=== PATIENT | male | born 1955 | race Caucasian/White ===

== ENCOUNTER 2023-11-05 04:41 | Emergency (ER) | payer OTHER, SELFPAY ==
[2023-11-05] VITALS (115 sets, daily range): BP systolic 150–223; BP diastolic 48–67; PULSE 57–85; RESP 8–27; TEMP 36.6; O2SAT 98
--- NOTE | 2023-11-05 04:30 | RT.EKG_ITS ---
APPROVED REPORT Exam: Resting ECG Reason for Exam: CHEST PAIN Patient Location: E HR:80 bpm ECG Measurements Heart Rate 80 AXIS KS 218 P 80 QRSd 104 QRS -11 QT 392 T 30 QTc 452 Conclusion Sinus rhythm...normal P axis, V-rate 60- 99 Borderline prolonged KS interval...KS >212, V-rate 50- 90 Consider anteroseptal infarct...Q >30mS, dimin R, V1-V2
--- NOTE | 2023-11-05 05:00 | DI.RAD_ITS ---
Exam(s) XR CHEST 2V PA LATERAL EXAM: XR CHEST 2V PA LATERAL CLINICAL HISTORY: shortness of breath. TECHNIQUE: 2D digital imaging was performed. COMPARISON: No exams were available for comparison FINDINGS: 2 views: Heart size is normal. The mediastinum is not widened. Lungs are clear. No infiltrates nor pleural effusions. IMPRESSION: No acute pulmonary findings. DATA REPOSITORY: RADIATION DOSE DELIVERED:
--- NOTE | 2023-11-05 05:13 | ED.GENADUL_ITS ---
Discharge Plan Disposition Patient Disposition: Home Condition: Stable Discharge Details Chief Complaint: RespSymp Clinical Impression: Sleep apnea-like behavior, Atrioventricular block, Mobitz type 1, Wenckebach, Bradycardia by electrocardiography Primary Care Provider: Danica,Local ED Provider: Doroteo Burnette Home Meds and New Rx's Prescriptions: No Action aspirin 81 mg capsule 81 mg PO DAILY amlodipine 5 mg tablet 5 mg PO DAILY atorvastatin 40 mg tablet 40 mg PO DAILY eplerenone 25 mg tablet 25 mg PO BID bumetanide 1 mg tablet 2 mg PO BID gabapentin 600 mg tablet 600 mg PO TID hydralazine 25 mg tablet 100 mg PO BID hydrocodone-acetaminophen 5-325 mg tablet 1 tab PO TID PRN nitroglycerin [Nitrostat] 0.4 mg tablet, sublingual 0.4 mg sublingual Q5-15M PRN Rx Instructions: do not exceed 3 doses per episode tamsulosin 0.4 mg capsule 0.8 mg PO QHS multivitamin with minerals 9 mg iron/15 mL liquid 15 ml PO DAILY omega 4-jqi-jpx-fish oil [Fish Oil] 1,000 mg (120 mg-180 mg) capsule 1 cap PO DAILY C Complex 1,000 mg tablet extended release 1,000 mg PO DAILY Discharge Instructions Instructions: Bradycardia (ED) Additional Instructions: When you fall asleep, you develop a relatively persistent bradycardia (slow heartbeat). This is a Mobitz type I AV block, also called Rosalee Vasquez. And while this is not a life-threatening cardiac dysrhythmia, it can be symptomatic. If you are bradycardic for long enough, it will wake you up from sleep and make you feel as though you are suffocating. No immediate intervention is needed, however you should contact and follow-up with your performance tester when you return to your local area to discuss possible treatments to help improve your heart rate and sleeping. Discharge Data Discharge Physician: Doroteo Burnette [facility] General Date/Time Provider Initiated Documentation: 11/05/23 04:44 . HPI Narrative: The patient is a 67-year-old male, with a past medical history significant for myocardial infarction with stenting in 2013, intermittent AV block, hypertension, diabetes mellitus, who recently had medication changed for increased swelling in his bilateral lower extremities and feet, who presents to the emergency department this morning with complaints of awakening from sleep at around 1:30 AM suddenly with a sense that he was suffocating and that he was going to . The patient states that he is somewhat chronically short of breath, but has not experienced something like this before. The patient took a warm shower and then got out as it seemed to make him feel worse. The patient tried a few puffs on his albuterol inhaler without any improvement in his symptoms. Currently the patient tells me that he feels exhausted, but has relatively normal breathing. The patient denies having any known prior history of sleep apnea, but states that he is currently scheduled to undergo sleep testing in [place] sometime in the near future. The patient denies any associated chest pain at the time of the event. The patient does report that he felt like my heart was going to beat out of my chest. Related Data Home Medications Medication Instructions Recorded Confirmed amlodipine 5 mg tablet 5 mg PO DAILY 11/05/23 11/05/23 ascorbic acid (vitamin C) 1,000 mg 1,000 mg PO DAILY 11/05/23 11/05/23 tablet,extended release (C Complex) aspirin 81 mg capsule 81 mg PO DAILY 11/05/23 11/05/23 atorvastatin 40 mg tablet 40 mg PO DAILY 11/05/23 11/05/23 bumetanide 1 mg tablet 2 mg PO BID 11/05/23 11/05/23 eplerenone 25 mg tablet 25 mg PO BID 11/05/23 11/05/23 gabapentin 600 mg tablet 600 mg PO TID 11/05/23 11/05/23 hydralazine 25 mg tablet 100 mg PO BID 11/05/23 11/05/23 hydrocodone 5 mg-acetaminophen 325 1 tab PO TID PRN 11/05/23 11/05/23 mg tablet multivit and minerals-ferrous 15 ml PO DAILY 11/05/23 11/05/23 gluconate 9 mg iron/15 mL oral liquid (multivitamin with minerals) nitroglycerin 0.4 mg sublingual 0.4 mg sublingual Q5-15M PRN 11/05/23 11/05/23 tablet (Nitrostat) omega 0-reu-aff-fish oil 1,000 mg 1 cap PO DAILY 11/05/23 11/05/23 (120 mg-180 mg) capsule (Fish Oil) tamsulosin 0.4 mg capsule 0.8 mg PO QHS 11/05/23 11/05/23 Allergies Allergy/AdvReac Type Severity Reaction Status Date / Time labetalol Allergy Unknown Other (See Verified 11/05/23 05:07 Comment) benzonatate AdvReac Severe Anaphylaxis Verified 11/05/23 05:07 metformin AdvReac Severe Diarrhea Verified 11/05/23 05:07 lisinopril AdvReac Intermediate Other (See Verified 11/05/23 05:07 Comment) losartan AdvReac Intermediate Other (See Verified 11/05/23 05:07 Comment) cetuximab [From Erbitux] AdvReac Unknown Other (See Verified 11/05/23 05:07 Comment) spironolactone AdvReac Unknown Other (See Verified 11/05/23 05:07 Comment) General Stated Complaint: RespSymp MARION: 2 Exam Const General: cooperative, comfortable and no acute distress Resp Effort & Inspection: normal respiratory effort and able to speak in complete sentences Auscultation: clear to auscultation bilaterally Cardio Rate: regular rate Rhythm: regular rhythm Heart Sounds: S1 normal and S2 normal GI Palpation: soft and nontender Auscultation: normal bowel sounds Neuro Cranial Nerves: CN's II-XI intact bilaterally Motor: muscle tone normal throughout and strength 5/5 throughout Sensory Exam: no sensory deficits noted Extrem General: edema (3+) Laterality: bilateral Psych Affect: anxious affect Course Vital Signs Vital signs: Vital Signs Temperature 36.6 C 11/05/23 04:45 Pulse 85 11/05/23 04:45 Respiratory Rate 17 11/05/23 04:45 Blood Pressure 197/61 H 11/05/23 04:45 Pulse Oximetry 98 11/05/23 04:45 Temperature 36.6 C 11/05/23 04:45 Temperature Source Temporal Artery Scan 11/05/23 04:45 Pulse 85 11/05/23 04:45 Respiratory Rate 17 11/05/23 04:45 Respiratory Effort Short of Breath 11/05/23 05:08 Respiratory Depth Normal 11/05/23 05:08 Blood Pressure 197/61 H 11/05/23 04:45 Blood Pressure Position Supine 11/05/23 04:45 Pulse Oximetry 98 11/05/23 04:45 Oxygen Delivery Method Room Air 11/05/23 04:45 Oxygen Flow Rate 0 11/05/23 04:45 Pain Level 6 11/05/23 04:45 Comment headache 11/05/23 04:45 Medical Decision Making The patient was seen and examined. His EKG represents a normal sinus rhythm with a ventricular response rate of 80 bpm. Although there are some Q waves in V1 and V2, there are no significant repolarization changes that would be consistent with acute myocardial ischemia. Patient does have some flattening globally of the T waves, and has a borderline first-degree AV block. The latter appears to be a known issue. The patient certainly has no significant increased work of breathing at this time and has normal oxygen saturation at rest. The patient has some leg swelling and does describe orthopnea, making me think that this might represent some amount of congestive heart failure. The patient had an [place] in the past without any chest pain, and acute myocardial ischemia with with around the room with possibility for the cause of the patient's symptoms. There is no specific reason to think that this represents gastrointestinal reflux disease or other primary GI phenomenon. Likewise, the patient has relatively good air exchange with no abnormally auscultated adventitial lung sounds. Considering the patient did not improve with albuterol at home, I am doubtful this would represent any form of obstructive pulmonary disease. The patient will have a standard cardiac workup with a VBG and proBNP to evaluate for the etiologies of COPD and CHF. The patient will have a chest x-ray to screen for a solid space air disease or increased cephalization of blood vessels which might be indicative of pneumonia or congestive failure. Disposition depe nds on discovery of pathology and the workup and changes in physiology with observation over time. 0610 - When the patient falls asleep, he develops a Wenckebach phenomenon, which seems to resolve to a normal sinus rhythm while awake. 0700 - The patient's workup was negative for any significant abnormalities, although his 3-hour troponin is still pending at this time. The patient develops Wenkebach when sleeping, which may be a function of sleep apnea although the patient does not significantly desaturate during these events. When the patient wakes back up, he almost immediately returns to a sinus rhythm with a only mildly prolonged NH interval. The patient most likely had symptoms overnight related to having a significant bradycardia associated with the Wenkebach. While this is not life-threatening, it is clearly bothering the patient. This is a known phenomenon in his primary care providers in the [place] area. I have encouraged the patient to follow-up with those providers when he returns and discuss having new symptoms to determine whether or not he would qualify for pacemaker placement at that time. The final review of the troponin level and dsicharge are signed out to Dr. Sutherland. Quality:[facility] Health Related Social Needs: No Data to Display PFSH All Active Problems (Updated 11/05/23 @ 07:19 by Doroteo Burnette MD) Bradycardia by electrocardiography (Acute) Atrioventricular block, Mobitz type 1, Wenckebach (Acute) Sleep apnea-like behavior (Acute) Social History Smoking/Tobacco Use Status: Never Smoking risk assessment performed?: Yes Alcohol Intake: never Drug use: Never Substance use type: does not use Housing: house Do you feel safe at home: Yes Do you feel safe in your relationship?: Yes
[2023-11-05 05:16] LABS: Abs Immature Grans 0.01 10^3/uL (0.0-0.06); Absolute Basophil Count 0.03 10^3/uL (0.0-0.2); Absolute Eosinophil Count 0.15 10^3/uL (0.0-0.7); Absolute Lymphocyte Count 2.59 10^3/uL (1.2-3.4); Absolute Monocyte Count 0.96 10^3/uL (0.1-0.8); Absolute Neutrophil Count 5.51 10^3/uL (1.2-6.7); Basophils % 0.3; Eosinophils % 1.6; HCT 41.3 % (40.0-50.0); HGB 13.5 g/dL (13.5-17.5); Immature Grans % 0.1; MCH 28.8 pg (27.0-33.0); MCHC 32.7 % (32.0-36.0); MCV 88 fL (80-95); MPV 10.6 fL (8.0-11.0); Monocytes % 10.4; Neutrophils % 59.6; Platelet Count 221 10^3/uL (130-400); RBC 4.69 10^6/uL (4.36-5.78); RDW 12.7 % (11.8-14.1); RDW-SD 41.2 fL; WBC 9.25 10^3/uL (4.4-10.8)
[2023-11-05 05:19] LABS: BE (Venous) 6 mmol/L (-2-3); HCO3 (Venous) 31 mmol/L (23-28); O2 Sat (Venous) 99 %; TCO2 (Venous) 27 mmol/L (24-29); pCO2 (Venous) 45 mmHg (41-51); pH (Venous) 7.44 (7.31-7.41); pO2 (Venous) 92 mmHg
[2023-11-05 05:48] LABS: NT-proBNP 65 pg/mL (<300); Troponin I < 50 ng/L (< or =60)
[2023-11-05 05:51] LABS: Anion Gap 9.6 mmol/L (3-11); BUN 33 mg/dL (7-18); CO2 29.4 mmol/L (21.0-32.0); CREATININE 1.2 mg/dL (0.70-1.30); Calcium 8.5 mg/dL (8.5-10.1); Chloride 102 mmol/L (98-107); Glucose 161 mg/dL (74-106); Potassium 4.1 mmol/L (3.5-5.1); Sodium 141 mmol/L (136-145)
--- NOTE | 2023-11-05 06:00 | RT.EKG_ITS ---
APPROVED REPORT Exam: Resting ECG Reason for Exam: a-SANTIAGO Patient Location: E HR:50 bpm ECG Measurements Heart Rate 50 AXIS [place] [id number] P 57 QRSd 104 QRS -13 QT 424 T 26 QTc 388 Conclusion Sinus bradycardia...rate< 60 Atrial premature complex...SV complex w/ short R-R interval Low voltage, precordial leads...precordial leads <1.0mV Consider anteroseptal infarct...Q >30mS, dimin R, V1-V2
--- NOTE | 2023-11-05 06:30 | DI.VRAD_ITS ---
PROCEDURE INFORMATION: Exam: XR Chest Exam date and time: 11/05/2023 5:26 AM Age: 67 years old Clinical indication: Other: SOB TECHNIQUE: Imaging protocol: Radiologic exam of the chest. Views: 2 views. COMPARISON: No relevant prior studies available. FINDINGS: Lungs: Unremarkable. No consolidation. Pleural spaces: Unremarkable. No pleural effusion. No pneumothorax. Heart/Mediastinum: Unremarkable. No cardiomegaly. Bones/joints: Degenerative changes of the visualized osseous structures, [id number]. IMPRESSION: No acute cardiopulmonary findings. Dictated and Authenticated by: Saurabh Holman MD. Ordering:LITA Sadler MD
--- NOTE | 2023-11-05 07:12 | W.EDPROG ---
Date of service: 11/05/23 Time of Service: 07:12 Medical Decision Making I received signout on this 67-year-old male in the emergency department in the setting of shortness of breath. He was found to have Mobitz 1 block on ECG. 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 Plan is for repeat troponin and if negative discharged with return indications and outpatient follow-up. 8:48 AM Repeat troponin negative. Patient discharged with instructions per original provider. Quality:[facility] Health Related Social Needs: No Data to Display Sign Out Sign Out Data: Sign Out Comment: This patient is developing Wenke Bach while sleeping, potentially as a construct of undiagnosed sleep apnea. He has a repeat troponin pending after 8 AM, which I anticipate will be normal, as is the rest of his workup. I think the patient is symptomatic when he becomes bradycardic during sleep with the Wenke Bach phenomenon. I have explained to the patient that while this is not life-threatening it can cause symptoms. He should follow back up with his cardiac provider on returning to [place] for further management options. Discharge instructions are written assuming the second troponin is negative. Last updated by Doroteo Burnette MD at 11/05/23 07:21 Discharge Plan Disposition Patient Disposition: Home Condition: Stable Discharge Details Clinical Impression: Sleep apnea-like behavior, Atrioventricular block, Mobitz type 1, Wenckebach, Bradycardia by electrocardiography Primary Care Provider: Danica,Local ED Provider: Joon Whitt [place] Meds and New Rx's Prescriptions: Continued aspirin 81 mg capsule 81 mg PO DAILY amlodipine 5 mg tablet 5 mg PO DAILY atorvastatin 40 mg tablet 40 mg PO DAILY eplerenone 25 mg tablet 25 mg PO BID bumetanide 1 mg tablet 2 mg PO BID gabapentin 600 mg tablet 600 mg PO TID hydralazine 25 mg tablet 100 mg PO BID hydrocodone-acetaminophen 5-325 mg tablet 1 tab PO TID PRN nitroglycerin [Nitrostat] 0.4 mg tablet, sublingual 0.4 mg sublingual Q5-15M PRN Rx Instructions: do not exceed 3 doses per episode tamsulosin 0.4 mg capsule 0.8 mg PO QHS multivitamin with minerals 9 mg iron/15 mL liquid 15 ml PO DAILY omega 7-vdh-kxn-fish oil [Fish Oil] 1,000 mg (120 mg-180 mg) capsule 1 cap PO DAILY C Complex 1,000 mg tablet extended release 1,000 mg PO DAILY Discharge Instructions Instructions: Bradycardia (ED) Additional Instructions: When you fall asleep, you develop a relatively persistent bradycardia (slow heartbeat). This is a Mobitz type I AV block, also called Rosalee Vasquez. And while this is not a life-threatening cardiac dysrhythmia, it can be symptomatic. If you are bradycardic for long enough, it will wake you up from sleep and make you feel as though you are suffocating. No immediate intervention is needed, however you should contact and follow-up with your development editor when you return to your local area to discuss possible treatments to help improve your heart rate and sleeping. Discharge Data Discharge Physician: Doroteo Burnette
[2023-11-05] MEDS: Normal Saline Flush 10 ML SYR IVP (08:23)
[2023-11-05 08:45] LABS: Troponin I < 50 ng/L (< or =60)
== END 2023-11-05 09:15 | disposition home or self-care (01) ==
PROVIDERS: Emergency Medicine Emergency Medical Services; Emergency Provider Emergency Medicine
DX: F41.0 Panic disorder [episodic paroxysmal anxiety] (principal); R51.9 Headache, unspecified; G47.30 Sleep apnea, unspecified; I44.1 Atrioventricular block, second degree; R00.1 Bradycardia, unspecified; I25.2 Old myocardial infarction; I10 Essential (primary) hypertension; E11.9 Type 2 diabetes mellitus without complications; Z95.5 Presence of coronary angioplasty implant and graft
CPT/HCPCS: 00123; 36415; 80048; 82805; 93005; 99285; 71046; 83880; 84484; 85025; 93010; 99284